=== PATIENT | female | born 1975 | race Two or more races ===

== ENCOUNTER 2018-11-26 21:57 | Emergency (ER) | payer SELFPAY ==
[~2018-11-26] VITALS: Ht 165.1 cm; Wt 86.4 kg
[2018-11-26 22:54] LABS: GLUCOSE,POINT OF CARE 503 MG/DL (70-110)
[2018-11-26] MEDS ORDERED: ESCI20TA PO (22:58)
[2018-11-26] MEDS ORDERED: GABA-531 PO (22:58)
[2018-11-26] MEDS ORDERED: SIMV-260 PO (22:58)
[2018-11-26] MEDS ORDERED: METF-960 PO (22:58)
[2018-11-26] MEDS ORDERED: LURA80 PO (22:58)
[2018-11-26] MEDS ORDERED: OLAN5TAB2 PO (22:58)
[2018-11-26 23:22] LABS: BASOPHILS % (AUTO) 1.1 % (0.0-2.0); HEMATOCRIT 40.3 % (36-46); HEMOGLOBIN 13.5 g/dL (12.0-16.0); LYMPHOCYTES # (AUTO) 4.1 K/uL (1.0-4.8); LYMPHOCYTES % (AUTO) 39.3 % (22.0-44.0); MEAN CORPUSCULAR HEMOGLOBIN 30.1 pg (26.0-34.0); MEAN CORPUSCULAR HGB CONC 33.4 G/dL (31.0-37.0); MEAN CORPUSCULAR VOLUME 90 fL (80-100); MONOCYTES # (AUTO) 0.4 K/uL (0.1-1.0); MONOCYTES % (AUTO) 4.1 % (2.0-9.0); NEUTROPHILS # (AUTO) 5.4 K/uL (1.8-7.7); NEUTROPHILS % (AUTO) 51.5 % (40.0-70.0); PLATELET COUNT (AUTO) 418 K/uL (150-450); RED BLOOD CELL COUNT(AUTO) 4.47 MIL/uL (4.00-5.20); RED CELL DISTRIBUTION WIDTH 13.9 % (11.5-14.5)
[2018-11-26 23:38] LABS: ALANINE AMINOTRANSFERASE 41 U/L (12-78); ALBUMIN 3.7 g/dL (3.4-5.0); ALKALINE PHOSPHATASE 226 U/L (46-116); ANION GAP 17 mmol/L (8-16); ASPARTATE AMINOTRANSFERASE 8 U/L (15-37); BILIRUBIN,TOTAL 0.2 mg/dL (0.1-1.0); CALCIUM, TOTAL 9.5 mg/dL (8.8-10.5); CARBON DIOXIDE 19 mmol/L (22-29); CHLORIDE 100 mmol/L (98-107); GLOMERULAR FILTR. RATE CALC 55 mL/min (>60); POTASSIUM 3.6 mmol/L (3.5-5.1); SODIUM SERUM 136 mmol/L (136-145); TOTAL PROTEIN, SERUM 8.6 g/dL (6.4-8.2); UREA NITROGEN, BLOOD 13 mg/dL (7-18)
[2018-11-26 23:40] LABS: GLUCOSE,RANDOM 538 mg/dL (70-110)
[2018-11-27] MEDS ORDERED: INSULIN REGULAR, HUMAN 100 UNITS/ML IVP ONE ×3 (00:30→03:30)
[2018-11-27] MEDS ORDERED: SODIUM CHLORIDE 0.9% 1,000 ML IV ONE ×2 (00:30→03:15)
[2018-11-27 00:55] LABS: HCG,QUANTITATIVE < 1 mIU/mL (0-6)
[2018-11-27 00:56] LABS: SALICYLATE 2.4 mg/dL (2.8-20.0)
[2018-11-27 01:06] LABS: ACETAMINOPHEN < 2 mcg/mL (10-30)
[2018-11-27 02:04] LABS: GLUCOSE,POINT OF CARE 438 MG/DL (70-110)
[2018-11-27 03:18] LABS: AMPHET/METH SCREEN,URINE NEGATIVE (NEGATIVE); BARBITURATE SCREEN, URINE NEGATIVE (NEGATIVE); BENZODIAZEPINES SCREEN,URINE NEGATIVE (NEGATIVE); CANNABINOID SCREEN,URINE POSITIVE (NEGATIVE); COCAINE SCREEN,URINE NEGATIVE (NEGATIVE); METHADONE SCREEN, URINE NEGATIVE (NEGATIVE); OPIATE SCREEN,URINE NEGATIVE (NEGATIVE); PHENCYCLIDINE SCREEN,URINE NEGATIVE (NEGATIVE)
[2018-11-27 03:19] LABS: GLUCOSE,POINT OF CARE 400 MG/DL (70-110)
[2018-11-27 04:44] LABS: GLUCOSE,POINT OF CARE 343 MG/DL (70-110)
[2018-11-27 08:27] VITALS: BP 121/68
== END 2018-11-27 09:05 | disposition home or self-care (01) ==
LOC: EMS 22:01 → EDBD 22:01 → EMS 11-27 09:05
DX: F10.129 Alcohol abuse with intoxication, unspecified (principal); F12.90 Cannabis use, unspecified, uncomplicated; E11.65 Type 2 diabetes mellitus with hyperglycemia; E78.00 Pure hypercholesterolemia, unspecified; F17.210 Nicotine dependence, cigarettes, uncomplicated; Z79.84 Long term (current) use of oral hypoglycemic drugs; Z79.899 Other long term (current) drug therapy
CPT/HCPCS: 36415; 80053; 80307; 82962; 84702; 85025; 96361; 96374; 96376; 99283; G0480 ×2; G0481; J1815; J7030